=== PATIENT | female | born 1975 | race African-American/Black ===

== ENCOUNTER 2023-12-30 13:25 | Emergency (ER) | payer SELFPAY ==
--- NOTE | ~2023-12-30 | XR_ITS ---
CHEST RADIOGRAPH, PA AND LATERAL CLINICAL HISTORY: mold exposure . COMPARISON: None available TECHNIQUE: PA and lateral views of the chest. FINDINGS The cardiomediastinal silhouette is unremarkable. The lungs are clear. Visualized osseous structures and soft tissues are unremarkable. IMPRESSION: No focal infiltrate or effusion. Reviewed, dictated and finalized at location A. [employer] BUSINESS ANALYST
[2023-12-30 13:30] VITALS: BP 183/119; PULSE 94; RESP 20; TEMP 36.3; O2SAT 100
[2023-12-30 16:10] VITALS: BP 179/89; PULSE 80; RESP 18; O2SAT 100
--- NOTE | 2023-12-30 16:17 | PC.NURSE ---
Patient requested to take her home BP medication. this RN spoke with Dr Rivera who states patient is able to take her home medications. patient given water and informed of this
[2023-12-30 18:22] LABS: Basophils Percent Auto 0.6 % (0.2-1.2); Eosinophils Percent Auto 0.3 % (0-4.4); Hematocrit 41.3 % (37.0-47.0); Hemoglobin 12.1 g/dL (12.0-15.0); Immature Granulocyte Absolute 0.01 K/mm3 (0.00-0.031); Immature Granulocyte Percent A 0.2 % (0-0.5); Immature Platelet Fraction Pct 3.4 % (0.9-11.2); Lymphocytes Absolute Auto 3.11 K/mm3 (0.9-3.2); Lymphocytes Percent Auto 50.3 % (18.3-44.2); Mean Corpuscular HGB Conc 29.3 g/dl (32-36); Mean Corpuscular Hemoglobin 26.4 pg (26-34); Mean Platelet Volume 10.5 fl (7.4-10.4); Monocytes Absolute Auto 0.4 K/mm3 (0.1-0.6); Neutrophils Absolute Auto 2.6 K/mm3 (1.3-6.7); Neutrophils Percent Auto 41.6 % (45.5-73.1); Platelet Count Result 192 k/mm3 (150-375); Red Blood Count 4.59 M/mm3 (4.2-5.4); Red Cell Distribution Width 15.3 % (11.5-14.5); White Blood Count 6.2 K/mm3 (4.5-10.0)
[2023-12-30 18:37] LABS: Alanine Aminotransferase 18 U/L (6-35); Albumin Level 4.4 g/dL (3.5-5.1); Alkaline Phosphatase 64 U/L (38-126); Anion Gap 6 mmol/L (4-12); Aspartate Amino Transferase 26 U/L (14-36); Bilirubin,Total 0.3 mg/dL (0.2-1.3); Blood Urea Nitrogen 15 mg/dL (7-17); Calcium 9.5 mg/dL (8.4-10.2); Carbon Dioxide 23 mmol/L (22-30); Chloride 111 mmol/L (98-107); Estimated CRCL calculation 75 ml/min; Estimated Glomerular Filt Rate > 60; Glucose 85 mg/dL (65-110); Magnesium 2.2 mg/dL (1.6-2.3); Potassium 4.1 mmol/L (3.4-5.0); Sodium 140 mmol/L (137-145)
[2023-12-30 18:44] LABS: Hypochromasia 1+; Platelet Estimate Adequate (Adequate); Schistocytes None Seen
[2023-12-30 18:45] LABS: Anisocytosis 1+
[2023-12-30 18:56] LABS: Influenza A QL RT-PCR Negative (Negative); Influenza B QL RT-PCR Negative (Negative); RSV RNA, RT-PCR Negative (Negative); SARS-CoV-2 RNA PCR Negative (Negative)
[2023-12-30] MEDS: ACETAMINOPHEN 500 MG TABLET 1000 MG PO (18:58)
[2023-12-30] MEDS: ONDANSETRON INJ 4 MG/2 ML VIAL IV PUSH (19:00)
[2023-12-30] MEDS: SODIUM CHLORIDE 0.9% IV 1,000 ML 999 ML IV CONT (19:00)
--- NOTE | 2023-12-30 19:15 | ED.GENADULT ---
HPI - General Adult General Chief complaint: Environmental Exposure Stated complaint: mold exposure Time Seen by Provider: 12/30/23 16:57 Source: patient Mode of arrival: EMS Limitations: no limitations History of Present Illness HPI narrative: Patient is a 48-year-old female who presents to the ED via EMS with report of mold exposure. Patient reports she is visiting her significant other from [facility] [place] and had been staying in his apartment which is infected with black mold. Patient states she has not been feeling well since Thursday. Complains of nausea, body aches, ear pain, headache, foul taste in her mouth. Denies fevers. Denies chest pain, shortness of breath, abdominal pain. Related Data Allergies Allergy/AdvReac Type Severity Reaction Status Date / Time No Known Allergies Allergy Verified 12/30/23 16:11 Review of Systems Review of Systems: All systems reviewed & are unremarkable except as noted in HPI. All systems reviewed & are unremarkable except as noted in HPI and below Exam Narrative: GENERAL: Well appearing, well-nourished, non-toxic, in no acute distress. HEAD: Normocephalic, atraumatic. EYES: PERRL/EOMI, conjunctiva clear ENT: R TM clear. L ear with some cerumen present in ear canal, normal TM. No evidence of AOE/AOM. RESPIRATORY: Airway patent, respirations nonlabored. Clear to auscultation bilaterally, no rales, rhonchi, wheezing. No focal lung sounds. CARDIOVASCULAR: Regular rate and rhythm without murmurs, rubs, or gallops. MUSCULOSKELETAL: Moves all extremities. No gross deformities. SKIN: Warm, dry, normal color. NEURO: A&O X3. Speech clear. Cranial nerves II-XII grossly intact. Steady gait. No ataxic movements. PSYCHIATRIC: Mildly anxious. Normal interaction. Course Vital Signs Vital signs: Vital Signs Temperature 97.3 F L 12/30/23 13:30 Pulse Rate 94 12/30/23 13:30 Respiratory Rate 20 12/30/23 13:30 Blood Pressure 183/119 H 12/30/23 13:30 Pulse Oximetry 100 12/30/23 13:30 Oxygen Delivery Room Air 12/30/23 13:30 Temperature 97.3 F L 12/30/23 13:30 Pulse Rate 80 12/30/23 16:10 Respiratory Rate 18 12/30/23 16:10 Blood Pressure 179/89 H 12/30/23 16:10 Pulse Oximetry 100 12/30/23 16:10 Oxygen Delivery Room Air 12/30/23 13:30 Medical Decision Making MDM Narrative Medical decision making narrative: Patient presented to ED with multiple complaints regarding being exposed to mold. Complains of nausea, ear pain, body aches, headache. Vital signs are stable upon arrival. Patient is in no acute distress. Exam fairly unremarkable. Basic laboratory studies were obtained and also unremarkable. No leukocytosis. Stable H&H. Stable electrolytes, kidney function, liver function. Viral swabs are negative. Chest x-ray is clear. Patient given fluids, Tylenol, Zofran in the ED. She is feeling better with supportive therapy. Discussed that we do not have a specific test for mold, but advised patient to avoid any further exposure and have close follow-up with her PCP for further evaluation. Will discharge with prescription for Zofran. She agrees with plan. Will be staying with her significant other's family member. Has a safe place to be discharged. Given return precautions. Discharged stable condition. Medical Records Medical records reviewed: Yes I reviewed the external patient's medical records. Vital Signs Vital Signs: Vital Signs Temperature 97.3 F L 12/30/23 13:30 Pulse Rate 94 12/30/23 13:30 Respiratory Rate 20 12/30/23 13:30 Blood Pressure 183/119 H 12/30/23 13:30 Pulse Oximetry 100 12/30/23 13:30 Oxygen Delivery Room Air 12/30/23 13:30 Temperature 97.3 F L 12/30/23 13:30 Pulse Rate 80 12/30/23 16:10 Respiratory Rate 18 12/30/23 16:10 Blood Pressure 179/89 H 12/30/23 16:10 Pulse Oximetry 100 12/30/23 16:10 Oxygen Delivery Room Air 12/30/23 13:30 Lab Data Lab results reviewed: Yes I reviewed the patient's lab results. 12/30/23 17:37 12/30/23 17:37 Labs: Lab Results 12/30/23 Range/Units 17:37 WBC 6.2 (4.5-10.0) K/mm3 RBC 4.59 (4.2-5.4) M/mm3 Hgb 12.1 (12.0-15.0) g/dL Hct 41.3 (37.0-47.0) % MCV 90.0 (80-100) fl MCH 26.4 (26-34) pg MCHC 29.3 L (32-36) g/dl RDW 15.3 H (11.5-14.5) % Plt Count 192 (150-375) k/mm3 MPV 10.5 H (7.4-10.4) fl Immature Gran % (Auto) 0.2 (0-0.5) % Neut % (Auto) 41.6 L (45.5-73.1) % Lymph % (Auto) 50.3 H (18.3-44.2) % [place] % (Auto) 7.0 (2.6-8.5) % Eos % (Auto) 0.3 (0-4.4) % Baso % (Auto) 0.6 (0.2-1.2) % Lymph # (Auto) 3.11 (0.9-3.2) K/mm3 [place] # (Auto) 0.4 (0.1-0.6) K/mm3 Eos # (Auto) 0.0 (0-0.3) K/mm3 Baso # (Auto) 0.0 (0.0-0.1) K/mm3 Abs Immat Gran (auto) 0.01 (0.00-0.031) K/mm3 Absolute Neuts (auto) 2.6 (1.3-6.7) K/mm3 Absolute Nucleated RBC 0.000 (0.0-0.012) K/mm3 Nucleated RBC % 0.0 (0.0-0.2) % Platelet Estimate Adequate (Adequate) % Immature Plt Fraction 3.4 (0.9-11.2) % Hypochromasia 1+ Anisocytosis 1+ Schistocytes None seen Sodium 140 (137-145) mmol/L Potassium 4.1 (3.4-5.0) mmol/L Chloride 111 H (98-107) mmol/L Carbon Dioxide 23 (22-30) mmol/L Anion Gap 6 (4-12) mmol/L BUN 15 (7-17) mg/dL Creatinine 0.80 (0.7-1.0) mg/dL Estim Creat Clear Calc 75 ml/min Estimated GFR > 60 (59 - ) Glucose 85 (65-110) mg/dL Calcium 9.5 (8.4-10.2) mg/dL Magnesium 2.2 (1.6-2.3) mg/dL Total Bilirubin 0.3 (0.2-1.3) mg/dL AST 26 (14-36) U/L ALT 18 (6-35) U/L Alkaline Phosphatase 64 (38-126) U/L Total Protein 8.0 (6.3-8.2) g/dL Albumin 4.4 (3.5-5.1) g/dL Influenza A (RT-PCR) Negative (Negative) Influenza B (RT-PCR) Negative (Negative) RSV (RT-PCR) Negative (Negative) SARS-CoV-2 RNA (RT-PCR) Negative (Negative) Imaging Data Attestation: I personally reviewed and interpreted this imaging study as follows: Radiologist's impression: ITS Impressions Chest X-Ray 12/30/23 18:59 IMPRESSION: No focal infiltrate or effusion. Discharge Plan Discharge Clinical Impression: Mold exposure, Myalgia, Nausea Patient Disposition: Home, Self-Care Condition: Stable Instructions: Antibiotic Form, Acute Nausea and Vomiting (ED), Weakness (ED), Musculoskeletal Pain (ED) Additional Instructions: Avoid further mold exposure if possible. Stay well hydrated. Utilize Tylenol and ibuprofen as needed for body aches. Zofran as needed for nausea. Return to the ED if you experience worsening or severe symptoms, severe pain, difficulty breathing, persistent fevers, unable to keep down food or drink, or any other symptoms of concern. Prescriptions: New ondansetron 4 mg tablet,disintegrating 4 mg PO Q8H PRN (Reason: nausea and vomiting) Qty: 10 0RF Follow-up/Referrals: UNKNOWN,DOCTOR [Primary Care Provider] - Time of Disposition: 20:10
== END 2023-12-30 20:55 | disposition home or self-care (01) ==
PROVIDERS: Emergency Provider Physician Assistant
DX: M79.10 Myalgia, unspecified site (principal); R11.0 Nausea; Z77.120 Contact with and (suspected) exposure to mold (toxic); Z20.822 Contact with and (suspected) exposure to COVID-19
CPT/HCPCS: 36415; 71046; 80053; 83735; 85025; 85055; 87637; 96361; 96374; 99284; A9270; J2405; J7030